=== PATIENT | female | born 1980 | race African-American/Black ===

== ENCOUNTER 2017-06-01 16:17 | Emergency (ER) | payer MEDICAID, OTHER ==
[~2017-06-01] VITALS: Ht 162.6 cm; Wt 77.0 kg
[2017-06-01] MEDS ORDERED: DIPHENHYDRAMINE 25MG CAPSULE PO ONE (20:15)
[2017-06-01] MEDS ORDERED: PREDNISONE 20MG TABLET PO ONE (20:15)
[2017-06-01] MEDS ORDERED: FAMOTIDINE 20MG TABLET PO ONE (20:15)
[2017-06-01 20:32] VITALS: BP 122/67
== END 2017-06-01 20:33 | disposition home or self-care (01) ==
LOC: ER 16:42
DX: T78.40XA Allergy, unspecified, initial encounter (principal); D57.1 Sickle-cell disease without crisis; Z88.6 Allergy status to analgesic agent; W57.XXXA Bitten or stung by nonvenomous insect and other nonvenomous arthropods, initial encounter
CPT/HCPCS: 99284; J7512; Q0163